=== PATIENT | male | born 1965 | race Caucasian/White ===

== ENCOUNTER 2017-06-15 13:08 | Emergency (ER) | payer BC, OTHER ==
[~2017-06-15] VITALS: Ht 182.9 cm; Wt 78.6 kg
[2017-06-15 13:26] LABS: HEMATOCRIT 44.6 % (39.2-51.8); HEMOGLOBIN 15.2 g/dL (13.7-18.0); WHITE BLOOD COUNT 6.1 x10^3/uL (3.4-10)
[2017-06-15] MEDS ORDERED: SODIUM CHLORIDE 0.9% 1,000ML IVBOLUS ONE (13:30)
[2017-06-15] MEDS ORDERED: SODIUM CHLORIDE FLUSH 10ML SYR IVF ONE (13:30)
[2017-06-15 13:39] LABS: BLOOD UREA NITROGEN 15 mg/dL (7-18)
[2017-06-15 14:01] LABS: IS PT STATUS REG ER OR PRE ER? YES
[2017-06-15] MEDS ORDERED: ALLO300T PO (15:02)
[2017-06-15 15:10] VITALS: BP 126/78
== END 2017-06-15 15:12 | disposition home or self-care (01) ==
LOC: ED 13:57
DX: E86.0 Dehydration (principal); R55 Syncope and collapse
CPT/HCPCS: 36415; 71010; 80048; 82040; 83880; 84484; 85025; 93005; 96360; 96361; 99285; J7030